=== PATIENT | male | born 1990 | race Hispanic/Latino ===

== ENCOUNTER 2016-11-20 14:31 | Inpatient (IN) | payer BC, MEDICAID ==
--- NOTE | 2016-11-20 15:22 | ED PDOC ---
HPI: General Adult Time Seen by Provider: 11/20/16 14:40 Chief Complaint (Nursing): Abdominal Pain Chief Complaint (Provider): abdominal pain History Per: Patient History/Exam Limitations: no limitations Additional Complaint(s): 26yo male comes to the ED complaining of abdominal pain and diarrhea. Pain is worse with movement. No vomit or fever. No dysuria. States he works out and is concerned for rhabdomyolosis, noting brown urine. Denies drinking protein shakes. pt has had heavy exercise and gym activity recently PMD: [place] Past Medical History Reviewed: Historical Data, Nursing Documentation, Vital Signs Vital Signs: Last Vital Signs Temp 97.3 F L 11/20/16 14:48 Pulse 68 11/20/16 14:48 Resp 16 11/20/16 21:29 BP 125/81 11/20/16 14:48 Pulse Ox 100 11/20/16 22:39 - Medical History PMH: Pneumonia (2016) Denies: Asthma, Bronchitis, Emphysema, HIV, Pulmonary Embolism, Chronic Kidney Disease - Surgical History Surgical History: No Surg Hx - Family History Family History: States: Unknown Family Hx - Social History Current smoker - smoking cessation education provided: No Alcohol: Occasional Drugs: Denies - Immunization History Hx Tetanus Toxoid Vaccination: No Hx Influenza Vaccination: No Hx Pneumococcal Vaccination: No - Home Medications Home Medications: Ambulatory Orders Medication Instructions Recorded No Known Home Med 11/20/16 - Allergies Allergies/Adverse Reactions: Allergies Allergy/AdvReac Type Severity Reaction Status Date / Time amoxicillin Allergy Mild RASH Verified 12/14/15 14:39 Review of Systems ROS Statement: Except As Marked, All Systems Reviewed And Found Negative Constitutional: Negative for: Fever Gastrointestinal: Positive for: Abdominal Pain, Diarrhea. Negative for: Nausea Genitourinary Male: Negative for: Dysuria, Hematuria Physical Exam - Reviewed Nursing Documentation Reviewed: Yes Vital Signs Reviewed: Yes - Physical Exam Appears: Positive for: Well, Non-toxic, No Acute Distress Head Exam: Positive for: ATRAUMATIC, NORMAL INSPECTION, NORMOCEPHALIC Skin: Positive for: Warm, Dry Eye Exam: Positive for: EOMI, PERRL Cardiovascular/Chest: Positive for: Regular Rate, Rhythm Respiratory: Positive for: Normal Breath Sounds. Negative for: Rales, Rhonchi, Wheezing Gastrointestinal/Abdominal: Positive for: Soft. Negative for: Tenderness, Distended, Guarding, Rebound Extremity: Positive for: Normal ROM Neurologic/Psych: Positive for: Alert, Oriented - Laboratory Results Result Diagrams: 11/20/16 15:45 11/20/16 15:45 - ECG O2 Sat by Pulse Oximetry: 100 (RA) Pulse Ox Interpretation: Normal Medical Decision Making Medical Decision Makin Impression abdominal pain rule out rhabdomyelysis in light of recent gym activity plan: -labs -IV fluids -reassess Time: 1730 labs results reviewed: LFT elevated Time: 1844 CK elevated, ordered IV fluids. Patient admitted at this time to family medicine under Dr. Whittington. Resident made aware of patient. Discussed all results with patient, advised about plan and answered all questions. resident spoke to Dr Salinas velazquez contractor general engineering who did not advise any further intervention other than iv fluids. Time: 1949 Patient sleeping comfortably on re-evaluation. Currently on his second liter of IV fluids, requesting food. Discussed the significance of his blood work but patient is insisting on something to eat. 2200 US shows no acute pathology Disposition - Clinical Impression Clinical Impression: Abdominal pain, Rhabdomyolysis - Patient ED Disposition Is Patient to be Admitted: Yes Counseled Patient/Family Regarding: Studies Performed, Diagnosis - Disposition Disposition Time: 16:00 Condition: STABLE Additional Comments - Additional Comments Additional Comments: Scribe Attestation: Documented by Adelfo Castillo acting as a scribe for Ludmila Arciniega MD. Scribe Attestation: All medical record entries made by the Scribe were at my direction and personally dictated by me. I have reviewed the chart and agree that the record accurately reflects my personal performance of the history, physical exam, medical decision making, and the department course for this patient. I have also personally directed, reviewed, and agree with the discharge instructions and disposition.
[2016-11-20] MEDS ORDERED: Sodium Chloride 0.9% 1,000 ML IV STA ×4 (15:30→20:07)
[2016-11-20 16:05] LABS: BASO % 0.3 % (0.0-2.0); EOS # 0.1 K/uL (0.0-0.7); EOS % 1.3 % (0.0-4.0); HEMATOCRIT 42.6 % (35.0-51.0); LYMPH # 1.7 K/uL (1.0-4.3); LYMPH % 19.5 % (20.0-40.0); MEAN CELL VOLUME 85.5 fl (80.0-94.0); MEAN CORPUSCULAR HEMOGLOBIN 29.4 pg (27.0-31.0); MEAN CORPUSCULAR HGB CONC 34.4 g/dL (33.0-37.0); MEAN PLATELET VOLUME 7.3 fl (7.2-11.7); MONO # 0.7 K/uL (0.0-0.8); MONO % 8.5 % (0.0-10.0); NEUT # 6.1 K/uL (1.8-7.0); NEUT % 70.4 % (50.0-75.0); RED CELL DISTRIBUTION WIDTH 12.6 % (11.5-14.5); WHITE BLOOD COUNT 8.7 K/uL (4.8-10.8)
[2016-11-20 16:23] LABS: ALB/GLOB RATIO 1.6 (1.0-2.1); ALKALINE PHOSPHATASE 59 U/L (38-126); ALT/SGPT 444 U/L (21-72); BLOOD UREA NITROGEN 21 mg/dl (9-20); CALCIUM 9.3 mg/dL (8.4-10.2); CARBON DIOXIDE 28 mmol/L (22-30); CHLORIDE 99 mmol/L (98-107); GFR AFRICAN-AMERICAN > 60; GLUCOSE,RANDOM 75 mg/dL (75-110); SODIUM 137 mmol/l (132-148); TOTAL PROTEIN 6.8 G/DL (6.3-8.2)
[2016-11-20 16:24] LABS: RBC URINE < 1 /hpf (0-3); URINE BACTERIA RARE (<OCC); URINE BILIRUBIN NEGATIVE (NEGATIVE); URINE BLOOD LARGE (NEGATIVE); URINE COLOR YELLOW (YELLOW); URINE GLUCOSE (UA) NEG (Normal); URINE KETONE TRACE mg/dL (NEGATIVE); URINE LEUKOCYTE ESTERASE NEG Leu/uL (Negative); URINE PROTEIN 100 mg/dL (NEGATIVE); URINE UROBILINOGEN 0.2-1.0 mg/dL (0.2-1.0); WBC URINE 18 /hpf (0-5)
[2016-11-20 17:26] LABS: AST/SGOT 2116 U/L (17-59)
--- NOTE | 2016-11-20 19:12 | CP.PCM.HP ---
<TrungretaWong koenig - Last Filed: 11/20/16 22:36> History of Present Illness - History of Present Illness History of Present Illness: 26 yo M w/o PMHx is admitted to the hospital for suspected rhabdomyolysis w c/o diarrhea, brown-colored urine, and diffuse myalgias that are intensely localized to the abdomen and thighs bilaterally. Pt was at the gym previously, denies any supplement usage or inciting trauma leading up to his current clinical picture. Denies initiating any rehydration therapy or taking any medications before arriving in ED. He also denies f/c/n/v/c, headaches, dizziness, cp, sob, dyspnea, hematochezia, or melena. PMD: Dr Whittington PMHx: Pneumonia PSHx: None Allergy: Amoxicillin Home Meds: None FHx: None SHx: social etoh, denies illicit drugs, denies cigarettes ED Course: -CBC -CMP -CPK -Drug Screen -UCx -UA -U/S Abd -NS 1L @ 999 mL/hr Present on Admission - Present on Admission Any Indicators Present on Admission: No History of DVT/PE: No History of Uncontrolled Diabetes: No Urinary Catheter: No Decubitus Ulcer Present: No Past Patient History - Infectious Disease Hx of Infectious Diseases: None - Past Medical History & Family History Past Medical History?: No - Past Social History Alcohol: Occasional Drugs: Denies - CARDIAC Hx Cardiac Disorders: No - PULMONARY Hx Asthma: No Hx Bronchitis: No Hx Emphysema: No Hx Pneumonia: Yes (2015) Hx Pulmonary Embolism: No - NEUROLOGICAL Hx Neurological Disorder: No - HEENT Hx HEENT Problems: Yes (frequent throat infection) - RENAL Hx Chronic Kidney Disease: No - ENDOCRINE/METABOLIC Hx Endocrine Disorders: No - HEMATOLOGICAL/ONCOLOGICAL Hx Human Immunodeficiency Virus (HIV): No - INTEGUMENTARY Hx Dermatological Problems: No - MUSCULOSKELETAL/RHEUMATOLOGICAL Hx Musculoskeletal Disorders: No Hx Falls: No - GASTROINTESTINAL Hx Gastrointestinal Disorders: No - GENITOURINARY/GYNECOLOGICAL Hx Genitourinary Disorders: No - PSYCHIATRIC Hx Substance Use: No - SURGICAL HISTORY Hx Surgeries: No - ANESTHESIA Hx Anesthesia: Yes Hx Anesthesia Reactions: Yes Meds Allergies/Adverse Reactions: Allergies Allergy/AdvReac Type Severity Reaction Status Date / Time amoxicillin Allergy Mild RASH Verified 12/14/15 14:39 Physical Exam - Constitutional Appears: Non-toxic, Other (obvious pain) - Head Exam Head Exam: ATRAUMATIC, NORMAL INSPECTION - Eye Exam Eye Exam: EOMI. absent: Conjunctival injection, Scleral icterus Pupil Exam: PERRL - ENT Exam ENT Exam: Mucous Membranes Dry - Neck Exam Neck exam: Positive for: Full Rom. Negative for: Tenderness - Respiratory Exam Respiratory Exam: Clear to Auscultation Bilateral, NORMAL BREATHING PATTERN. absent: Rhonchi, Wheezes - Cardiovascular Exam Cardiovascular Exam: REGULAR RHYTHM - GI/Abdominal Exam GI & Abdominal Exam: Firm, Guarding, Hyperactive Bowel Sounds. absent: Diminished Bowel Sounds, Distended, Tenderness - Extremities Exam Extremities exam: Positive for: normal inspection, tenderness (b/l thighs very TTP). Negative for: calf tenderness, pedal edema - Back Exam Back exam: absent: CVA tenderness (L), CVA tenderness (R) - Neurological Exam Neurological exam: Alert, CN II-XII Intact, Oriented x3 - Psychiatric Exam Psychiatric exam: Normal Affect, Normal Mood - Skin Skin Exam: Dry, Intact, Normal Color, Warm Results - Vital Signs Recent Vital Signs: Last Vital Signs Temp 97.3 F L 11/20/16 14:48 Pulse 68 11/20/16 14:48 Resp 18 11/20/16 14:48 BP 125/81 11/20/16 14:48 Pulse Ox 100 11/20/16 18:48 - Labs Result Diagrams: 11/20/16 15:45 11/20/16 15:45 Assessment & Plan - Assessment and Plan (Free Text) Plan: 26 yo M w/o PMHx is admitted to the hospital for suspected rhabdomyolysis w c/o diarrhea, brown-colored urine, and diffuse myalgias that are intensely localized to the thighs bilaterally and abdomen 1) Rhabdomyolysis -CPK Pending -AST/ALT: 2116/444 -NS 1L @ 999mL/hr [ED] -NS 1L @ 999mL/hr x2 -NS 1L @ 175mL/hr continuously -NPO until abdominal pain resolves and physical exam normalizes -Monitoring I&O's -Monitoring kidney function -f/u CMP, CPK @ 2300 to evaluate treatment initiation in order to optimize therapy -f/u EKG -f/u U/S Abd -f/u Serial Physical exams -f/u VBG to r/o acidosis -f/u Urine Myoglobin -f/u am CBC, CMP, CPK, Ca, Phos 2) DVT Prophylaxis -SCDs -Will consider further treatment if his hospital stay is extended and when the risk of kidney injury is lessened <Alfredo Whittington - Last Filed: 11/21/16 06:37> Results - Vital Signs Recent Vital Signs: Last Vital Signs Temp 97.3 F L 11/20/16 14:48 Pulse 68 11/20/16 14:48 Resp 16 11/21/16 00:19 BP 125/81 11/20/16 14:48 Pulse Ox 100 11/20/16 22:57 - Labs Result Diagrams: 11/20/16 15:45 11/20/16 23:36 Labs: Laboratory Results - last 24 hr 11/20/16 11/20/16 20:48 23:36 pO2 30 VBG pH 7.34 VBG pCO2 53 VBG HCO3 25.0 VBG O2 Sat (Calc) 60.9 VBG Base Excess 1.6 Sodium 141 Potassium 4.0 Chloride 106 Carbon Dioxide 24 Anion Gap 15 BUN 16 Creatinine 1.0 Est GFR ( Amer) > 60 Est GFR (Non-Af Amer) > 60 Random Glucose 69 L Calcium 8.5 Total Bilirubin 1.0 AST 1993 H ALT 425 H Alkaline Phosphatase 54 Total Creatine Kinase 34977 H Total Protein 6.0 L Albumin 3.1 L D Globulin 2.9 Albumin/Globulin Ratio 1.1 Assessment & Plan (1) Elevated liver enzymes Status: Acute Attending/Attestation - Attestation I have fully participated in the care of the patient.: Yes I have reviewed all pertinent clinical information: Yes
[2016-11-20] MEDS ORDERED: Sodium Chloride 0.9% 1,000 ML IV SCH (20:00)
[2016-11-20 20:50] LABS: VENOUS BLOOD GAS BASE EXCESS 1.6 mmol/L (0.0-2.0); VENOUS BLOOD GAS PCO2 53 mmHg (40-60); VENOUS BLOOD PH 7.34 (7.32-7.43)
--- NOTE | 2016-11-21 00:33 | CP.PCM.PN ---
<Wong Martinez - Last Filed: 11/21/16 00:31> Subjective - Date & Time of Evaluation Date of Evaluation: 11/21/16 Time of Evaluation: 00:30 - Subjective Subjective: Pt was sleeping upon entering the room at most recent encounter. When motionless pain is 3/10, but reports pain worsens during movement. Serial physical exams have not changed from initial exam, including intact b/l distal pulses. CPK level from previous draw resulted at 106,176. Abdominal U/S is read as showing 'no acute findings.' f/u I&O's f/u recent CMP, CPK <Alfredo Whittington - Last Filed: 11/21/16 06:38> Objective - Vital Signs/Intake and Output Vital Signs (last 24 hours): Temp Pulse Resp BP Pulse Ox 97.3 F L 68 16 125/81 100 11/20/16 14:48 11/20/16 14:48 11/21/16 00:19 11/20/16 14:48 11/20/16 22:57 - Medications Medications: Current Medications Sodium Chloride (Sodium Chloride 0.9%) 1,000 mls @ 200 mls/hr IV .Q5H [facility] - Labs Labs: 11/20/16 23:36 Assessment and Plan (1) Elevated liver enzymes Status: Acute Attending/Attestation - Attestation I have personally seen and examined this patient.: Yes I have fully participated in the care of the patient.: Yes I have reviewed all pertinent clinical information, including history, physical exam and plan: Yes
[2016-11-21 00:59] LABS: BLOOD UREA NITROGEN 16 mg/dl (9-20); GFR AFRICAN-AMERICAN > 60; GLUCOSE,RANDOM 69 mg/dL (75-110); SODIUM 141 mmol/l (132-148)
[2016-11-21 01:00] LABS: CALCIUM 8.5 mg/dL (8.4-10.2); CARBON DIOXIDE 24 mmol/L (22-30); CHLORIDE 106 mmol/L (98-107)
[2016-11-21 01:01] LABS: ALB/GLOB RATIO 1.1 (1.0-2.1); ALKALINE PHOSPHATASE 54 U/L (38-126); ALT/SGPT 425 U/L (21-72)
[2016-11-21 01:08] LABS: AST/SGOT 1993 U/L (17-59)
[2016-11-21 07:02] LABS: MEAN CORPUSCULAR HEMOGLOBIN 29.5 pg (27.0-31.0); MEAN CORPUSCULAR HGB CONC 34.3 g/dL (33.0-37.0); RED CELL DISTRIBUTION WIDTH 12.8 % (11.5-14.5); WHITE BLOOD COUNT 6.9 K/uL (4.8-10.8)
[2016-11-21 07:04] LABS: ALB/GLOB RATIO 1.1 (1.0-2.1); ALKALINE PHOSPHATASE 54 U/L (38-126); ALT/SGPT 448 U/L (21-72); BILIRUBIN,TOTAL 0.9 mg/dl (0.2-1.3); BLOOD UREA NITROGEN 16 mg/dl (9-20); CALCIUM 8.5 mg/dL (8.4-10.2); CARBON DIOXIDE 23 mmol/L (22-30); CHLORIDE 109 mmol/L (98-107); GFR AFRICAN-AMERICAN > 60; GLUCOSE,RANDOM 58 mg/dL (75-110); PHOSPHOROUS 4.3 mg/dl (2.5-4.5); POTASSIUM 4.2 MMOL/L (3.6-5.0); SODIUM 143 mmol/l (132-148)
[2016-11-21 07:41] LABS: AST/SGOT 1845 U/L (17-59)
--- NOTE | 2016-11-21 07:44 | CP.PCM.PN ---
<Victor M Edmond - Last Filed: 11/21/16 16:29> Subjective - Date & Time of Evaluation Date of Evaluation: 11/21/16 Time of Evaluation: 07:00 - Subjective Subjective: The patient is a 26 y/o man w/o PMHx is admitted to the hospital for suspected rhabdomyolysis w/ complaints of diarrhea, brown-colored urine, and diffuse myalgias that are intensely localized to the thighs bilaterally and abdomen. The patient was seen this morning. There are no acute events overnight. The patient is not in acute distress. The patient is laying in bed. The patient reports pain with ambulation but relieved while laying at rest. The patient denies headaches, dizziness, chest pain, dyspnea, nausea, vomiting, constipation , melena, and hematochezia. Objective - Vital Signs/Intake and Output Vital Signs (last 24 hours): Temp Pulse Resp BP Pulse Ox 97.3 F L 56 L 18 128/73 98 11/21/16 07:30 11/21/16 07:30 11/21/16 07:30 11/21/16 07:30 11/21/16 07:30 - Medications Medications: Current Medications Sodium Chloride (Sodium Chloride 0.9%) 1,000 mls @ 200 mls/hr IV .Q5H [facility] - Labs Labs: 11/21/16 06:43 11/21/16 06:43 - Constitutional Appears: No Acute Distress - Head Exam Head Exam: ATRAUMATIC, NORMOCEPHALIC - Eye Exam Eye Exam: EOMI Pupil Exam: PERRL - ENT Exam ENT Exam: Mucous Membranes Dry - Respiratory Exam Respiratory Exam: Clear to Ausculation Bilateral. absent: Accessory Muscle Use , Chest Wall Tenderness, Decreased Breath Sounds, Prolonged Expiratory Phase, Rales, Rhonchi, Wheezes, Respiratory Distress, Stridor - Cardiovascular Exam Cardiovascular Exam: REGULAR RHYTHM. absent: Tachycardia - GI/Abdominal Exam GI & Abdominal Exam: Firm, Guarding, Tenderness - Extremities Exam Extremities Exam: Tenderness. absent: Calf Tenderness, Pedal Edema Additional comments: bilateral thighs are tender to palpation - Neurological Exam Neurological Exam: Alert, Awake, Normal Gait, Oriented x3 - Skin Skin Exam: Dry, Intact, Normal Color, Warm Assessment and Plan - Assessment and Plan (Free Text) Assessment: The patient is a 26 y/o man w/o PMHx is admitted to the hospital for suspected rhabdomyolysis w/ complaints of diarrhea, brown-colored urine, and diffuse myalgias that are intensely localized to the thighs bilaterally and abdomen. Plan: 1) Rhabdomyolysis - CPK Pending - AST/ALT: 2116/444 - NS 1L @ 999mL/hr [ED] - NS 1L @ 999mL/hr x2 - NS 1L @ 200mL/hr continuously - NPO until abdominal pain resolves and physical exam normalizes - Monitoring I&O's - follow up EKG - follow up U/S Abd - follow up Serial Physical exams - VBG: pH 7.34, no acidosis - follow up Urine Myoglobin - follow up am CBC, CMP, CPK, Ca, Phos - follow up creatinine phosphokinase 88802 - kidney function stable, BUN 16 and Cr 0.9 - Urine tox: negative - nephrology consulted, Dr. Niño, made aware 2) Chemical Hepatitis - secondary to rhabdomyolysis - AST 1845 - ALT 448 3) DVT Prophylaxis - SCDs - patient ambulating Dispo: - patient made aware the severity of condition and necessity for treatment - patient counseled that condition without treatment could lead to irreversible kidney and liver damage - patient counseled that end organ damage may require permanent hemodialysis for kidneys and possible transplants of kidney and liver and even may lead to <Alfredo Whittington - Last Filed: 11/24/16 06:40> Objective - Vital Signs/Intake and Output Vital Signs (last 24 hours): Temp Pulse Resp BP Pulse Ox 98.5 F 50 L 18 117/71 98 11/23/16 21:26 11/23/16 21:26 11/23/16 21:26 11/23/16 21:26 11/23/16 21:26 Intake and Output: 11/23/16 11/24/16 18:59 06:59 Intake Total 5460 Output Total 6700 Balance -1240 - Medications Medications: Current Medications Sodium Chloride (Sodium Chloride 0.9%) 1,000 mls @ 250 mls/hr IV .Q4H [facility] Last Admin: 11/24/16 00:38 Dose: 250 mls/hr - Labs Labs: 11/21/16 06:43 11/24/16 05:15 Assessment and Plan (1) Elevated liver enzymes Status: Acute Attending/Attestation - Attestation I have personally seen and examined this patient.: Yes I have fully participated in the care of the patient.: Yes I have reviewed all pertinent clinical information, including history, physical exam and plan: Yes
[2016-11-21] MEDS: Sodium Chloride 0.9% 1,000 ML IV SCH ×4 (08:32→21:26)
--- NOTE | 2016-11-21 09:07 | US ---
HISTORY: abnormal liver function tests COMPARISON: None. TECHNIQUE: Sonographic evaluation of the abdomen. FINDINGS: LIVER: Measures 14.3 cm. Patent portal vein. Portal venous flow: Hepatopetal. Unremarkeable echogenicity of the liver parenchyma. No mass. No intrahepatic bile duct dilatation. GALLBLADDER: Unremarkable. No gallstones. COMMON BILE DUCT: Measures 2.9 mm. No stones. No dilatation. PANCREAS: Unremarkable as visualized. No mass. No ductal dilatation. RIGHT KIDNEY: Measures 0.1 x 11cm. Normal echogenicity. No calculus, mass, or hydronephrosis. LEFT KIDNEY: Measures 7.6 x 12.4cm. Normal echogenicity. No calculus, mass, or hydronephrosis. SPLEEN: Normal in size and contour. No mass. AORTA: No aneurysmal dilatation. IVC: Unremarkable. OTHER FINDINGS: None. IMPRESSION: No acute findings related to/accounting for the clinical presentation. Concordant results (preliminary interpretation) provided by [facility]. Procedure Completed: 18:39. Preliminary (vRad) Report: Dictated and Authenticated: 20:23. Final Interpretation: 09:04. November 21, 2016.
--- NOTE | 2016-11-21 09:49 | CP.PCM.CON ---
History of Present Illness - History of Present Illness History of Present Illness: This patient who is 26 years old came to the emergency room complaining of intense lower abdominal pain and upper thigh. After he has been doing very heavy exercise on the abdomen and legs at [employer]. Patient denied taken a lot of protein supplement. And noted in the emergency room that he has very high CPK and admitted for rhabdomyolysis who was over 100,000 CPK. No history of drugs Review of Systems - Review of Systems All systems: reviewed and no additional remarkable complaints except - Constitutional Constitutional: As Per HPI. absent: Night Sweats, Sleep Apnea - Cardiovascular Cardiovascular: absent: Chest Pain, Claudication, Dyspnea, Pedal Edema - Respiratory Respiratory: absent: Cough, Dyspnea, Hemoptysis - Gastrointestinal Gastrointestinal: Abdominal Pain. absent: Vomiting - Genitourinary Genitourinary: As Per HPI - Musculoskeletal Musculoskeletal: Muscle Weakness - Neurological Neurological: As Per HPI Past Patient History - Infectious Disease Hx of Infectious Diseases: None - Past Medical History & Family History Past Medical History?: No - Past Social History Alcohol: Occasional Drugs: Denies - CARDIAC Hx Cardiac Disorders: No - PULMONARY Hx Respiratory Disorders: Yes - NEUROLOGICAL Hx Neurological Disorder: No - HEENT Hx HEENT Problems: No - RENAL Hx Chronic Kidney Disease: No - ENDOCRINE/METABOLIC Hx Endocrine Disorders: No - HEMATOLOGICAL/ONCOLOGICAL Hx Blood Disorders: No - INTEGUMENTARY Hx Dermatological Problems: No - MUSCULOSKELETAL/RHEUMATOLOGICAL Hx Musculoskeletal Disorders: No - GASTROINTESTINAL Hx Gastrointestinal Disorders: No - GENITOURINARY/GYNECOLOGICAL Hx Genitourinary Disorders: No - PSYCHIATRIC Hx Psychophysiologic Disorder: No - SURGICAL HISTORY Hx Surgeries: No - ANESTHESIA Hx Anesthesia: Yes Hx Anesthesia Reactions: Yes Meds Allergies/Adverse Reactions: Allergies Allergy/AdvReac Type Severity Reaction Status Date / Time amoxicillin Allergy Mild RASH Verified 12/14/15 14:39 - Medications Medications: Current Medications Sodium Chloride (Sodium Chloride 0.9%) 1,000 mls @ 200 mls/hr IV .Q5H [facility] Last Admin: 11/21/16 08:32 Dose: 200 mls/hr Physical Exam - Constitutional Appears: No Acute Distress - Eye Exam Eye Exam: Normal appearance - ENT Exam ENT Exam: Mucous Membranes Moist - Respiratory Exam Respiratory Exam: NORMAL BREATHING PATTERN. absent: Chest Wall Tenderness - Cardiovascular Exam Cardiovascular Exam: REGULAR RHYTHM. absent: JVD, Rubs - GI/Abdominal Exam GI & Abdominal Exam: Normal Bowel Sounds - Extremities Exam Extremities exam: Negative for: calf tenderness - Back Exam Back exam: absent: CVA tenderness (L), CVA tenderness (R) - Neurological Exam Neurological exam: Alert Results - Vital Signs Recent Vital Signs: Last Vital Signs Temp 97.3 F L 11/21/16 07:30 Pulse 56 L 11/21/16 07:30 Resp 18 11/21/16 07:30 BP 128/73 11/21/16 07:30 Pulse Ox 98 11/21/16 07:30 - Labs Result Diagrams: 11/21/16 06:43 11/21/16 06:43 Labs: Laboratory Results - last 24 hr 11/20/16 11/20/16 11/21/16 20:48 23:36 06:43 WBC 6.9 RBC 4.65 Hgb 13.7 Hct 40.0 MCV 86.0 MCH 29.5 MCHC 34.3 RDW 12.8 Plt Count 201 pO2 30 VBG pH 7.34 VBG pCO2 53 VBG HCO3 25.0 VBG O2 Sat (Calc) 60.9 VBG Base Excess 1.6 Sodium 141 143 Potassium 4.0 4.2 Chloride 106 109 H Carbon Dioxide 24 23 Anion Gap 15 15 BUN 16 16 Creatinine 1.0 0.9 Est GFR ( Amer) > 60 > 60 Est GFR (Non-Af Amer) > 60 > 60 Random Glucose 69 L 58 L Calcium 8.5 8.5 Phosphorus 4.3 Total Bilirubin 1.0 0.9 AST 1993 H 1845 H ALT 425 H 448 H Alkaline Phosphatase 54 54 Total Creatine Kinase 62347 H 45981 H Total Protein 6.0 L 6.0 L Albumin 3.1 L D 3.1 L Globulin 2.9 2.9 Albumin/Globulin Ratio 1.1 1.1 Assessment & Plan (1) Rhabdomyolysis Assessment and Plan: Patient appeared to have rhabdomyolysis admitted with CPK over 100,000 and started to come down. Continue IV fluid and force fluid by mouth Urine for myoglobin Urinalysis noted that the has large amount of blood and no RBC consistent with rhabdomyolysis Abnormal liver enzyme continue to monitor Discussed with the resident and attending physician. Status: Acute
[2016-11-22] MEDS: Sodium Chloride 0.9% 1,000 ML IV SCH ×9 (00:26→20:30)
[2016-11-22 08:07] LABS: ALB/GLOB RATIO 1.2 (1.0-2.1); ALKALINE PHOSPHATASE 54 U/L (38-126); ALT/SGPT 544 U/L (21-72); BILIRUBIN,TOTAL 0.4 mg/dl (0.2-1.3); BLOOD UREA NITROGEN 9 mg/dl (9-20); CALCIUM 8.9 mg/dL (8.4-10.2); CARBON DIOXIDE 28 mmol/L (22-30); CHLORIDE 107 mmol/L (98-107); GFR AFRICAN-AMERICAN > 60; GLUCOSE,RANDOM 87 mg/dL (75-110); POTASSIUM 4.6 MMOL/L (3.6-5.0); SODIUM 144 mmol/l (132-148); TOTAL PROTEIN 6.3 G/DL (6.3-8.2)
--- NOTE | 2016-11-22 09:07 | CP.PCM.PN ---
Subjective - Date & Time of Evaluation Date of Evaluation: 11/22/16 Time of Evaluation: 09:04 - Subjective Subjective: Patient seen and examined at bedside, reported 2 bowel movement soft stool , and having good duiresis. he is a little anxious" when i can Be out of this hospitals and multiple time asked for her CPK labs values. he denied fever, nausea, vomits chest pain palpitation SOB Objective - Vital Signs/Intake and Output Vital Signs (last 24 hours): Temp Pulse Resp BP Pulse Ox 98.2 F 57 L 20 138/75 97 11/22/16 07:35 11/22/16 07:35 11/22/16 07:35 11/22/16 07:35 11/22/16 07:35 - Medications Medications: Current Medications Sodium Chloride (Sodium Chloride 0.9%) 1,000 mls @ 200 mls/hr IV .Q5H [facility] Last Admin: 11/22/16 05:37 Dose: 200 mls/hr - Labs Labs: 11/21/16 06:43 11/22/16 05:30 - Head Exam Additional comments: ATRAUMATIC, NORMOCEPHALIC - Eye Exam Eye Exam: EOMI Pupil Exam: PERRL - ENT Exam ENT Exam: Mucous Membranes Dry - Respiratory Exam Respiratory Exam: Clear to Ausculation Bilateral. absent: Accessory Muscle Use , Chest Wall Tenderness, Decreased Breath Sounds, Prolonged Expiratory Phase, Rales, Rhonchi, Wheezes, Respiratory Distress, Stridor - Cardiovascular Exam Cardiovascular Exam: REGULAR RHYTHM. absent: Tachycardia - GI/Abdominal Exam GI & Abdominal Exam: Firm, Guarding, Tenderness - Extremities Exam Extremities Exam: Tenderness. absent: Calf Tenderness, Pedal Edema Additional comments: bilateral thighs are tender to palpation - Neurological Exam Neurological Exam: Alert, Awake, Normal Gait, Oriented x3 - Skin Skin Exam: Dry, Intact, Normal Color, Warm Assessment and Plan - Assessment and Plan (Free Text) Assessment: ) Rhabdomyolysis - Increased IV fluids NS 400 ml/hr - Monitor I&O - Encourage to drink 2 gallons of water daily . - follow up creatinine phosphokinase trending down [place] admission [place] [address] today [id number] - kidney function stable, BUN 14 and Cr 0.8 - Urine tox: negative - Dr. Niño, consulted input appreciated - electrolytes WNL 2) Elevated LFT - secondary to rhabdomyolysis - AST 2092 - ALT 544 - will continue to monitor 3) DVT Prophylaxis - SCDs - patient ambulating
[2016-11-22 09:51] LABS: AST/SGOT 2092 U/L (17-59)
--- NOTE | 2016-11-22 23:14 | CP.PCM.PN ---
Subjective - Date & Time of Evaluation Date of Evaluation: 11/22/16 Time of Evaluation: 11:00 - Subjective Subjective: feels better no muscle ache Objective - Vital Signs/Intake and Output Vital Signs (last 24 hours): Temp Pulse Resp BP Pulse Ox 97.9 F 55 L 20 134/80 99 11/22/16 20:58 11/22/16 20:58 11/22/16 20:58 11/22/16 20:58 11/22/16 20:58 Intake and Output: 11/22/16 11/23/16 18:59 06:59 Intake Total 45465 Output Total 7700 Balance 3600 - Medications Medications: Current Medications Sodium Chloride (Sodium Chloride 0.9%) 1,000 mls @ 250 mls/hr IV .Q4H UMESH Last Admin: 11/22/16 20:30 Dose: Not Given - Labs Labs: 11/21/16 06:43 11/22/16 05:30 - Constitutional Appears: Well, Non-toxic, No Acute Distress - Head Exam Head Exam: NORMAL INSPECTION - Eye Exam Eye Exam: Normal appearance - ENT Exam ENT Exam: Mucous Membranes Moist - Neck Exam Neck Exam: Normal Inspection - Respiratory Exam Respiratory Exam: NORMAL BREATHING PATTERN - Cardiovascular Exam Cardiovascular Exam: REGULAR RHYTHM - GI/Abdominal Exam GI & Abdominal Exam: Soft - Extremities Exam Extremities Exam: Normal Inspection - Neurological Exam Neurological Exam: Alert, Oriented x3 - Psychiatric Exam Psychiatric exam: Normal Mood - Skin Skin Exam: Dry, Warm Assessment and Plan - Assessment and Plan (Free Text) Plan: rhabdomyolysis/transaminitis rhabdo sec to heavy exercise, normal renal function and good urine output continue isotonic fluids monitor electrolytes and uop d/w resident
[2016-11-23] MEDS: Sodium Chloride 0.9% 1,000 ML IV SCH ×5 (04:00→20:31)
[2016-11-23 08:12] LABS: ALB/GLOB RATIO 1.1 (1.0-2.1); ALKALINE PHOSPHATASE 51 U/L (38-126); ALT/SGPT 514 U/L (21-72); BILIRUBIN,TOTAL 0.3 mg/dl (0.2-1.3); BLOOD UREA NITROGEN 7 mg/dl (9-20); CALCIUM 8.7 mg/dL (8.4-10.2); CARBON DIOXIDE 31 mmol/L (22-30); CHLORIDE 106 mmol/L (98-107); GFR AFRICAN-AMERICAN > 60; GLUCOSE,RANDOM 80 mg/dL (75-110); SODIUM 145 mmol/l (132-148); TOTAL PROTEIN 5.7 G/DL (6.3-8.2)
[2016-11-23 10:25] LABS: AST/SGOT 1740 U/L (17-59)
--- NOTE | 2016-11-23 10:44 | CP.PCM.PN ---
Subjective - Date & Time of Evaluation Date of Evaluation: 11/23/16 Time of Evaluation: 10:40 - Subjective Subjective: The patient is a 26 y/o man w/o PMHx is admitted to the hospital for suspected rhabdomyolysis w/ complaints of diarrhea, brown-colored urine, and diffuse myalgias that are intensely localized to the thighs bilaterally and abdomen. The patient was seen this morning. There are no acute events overnight. The patient is not in acute distress. The patient is laying in bed. The patient reports that he is drinking a lot water, has 3 gallon containers at bedside. Reports good diuresis and soft bowel movement. In better spirits after he was informed that his CPK levels have improved. The patient denies headaches, dizziness, chest pain, dyspnea, nausea, vomiting, constipation, melena, and hematochezia. Objective - Vital Signs/Intake and Output Vital Signs (last 24 hours): Temp Pulse Resp BP Pulse Ox 97.8 F 51 L 20 122/70 98 11/23/16 07:32 11/23/16 07:32 11/23/16 07:32 11/23/16 07:32 11/23/16 07:32 - Medications Medications: Current Medications Sodium Chloride (Sodium Chloride 0.9%) 1,000 mls @ 250 mls/hr IV .Q4H UMESH Last Admin: 11/23/16 08:26 Dose: 250 mls/hr - Labs Labs: 11/21/16 06:43 11/23/16 06:30 - Constitutional Appears: No Acute Distress - Head Exam Head Exam: ATRAUMATIC, NORMOCEPHALIC - ENT Exam ENT Exam: Mucous Membranes Moist - Respiratory Exam Respiratory Exam: Clear to Ausculation Bilateral. absent: Accessory Muscle Use , Chest Wall Tenderness, Decreased Breath Sounds, Prolonged Expiratory Phase, Rales, Rhonchi, Wheezes, Respiratory Distress, Stridor - Cardiovascular Exam Cardiovascular Exam: REGULAR RHYTHM. absent: Tachycardia - GI/Abdominal Exam GI & Abdominal Exam: Firm, Guarding, Tenderness Additional comments: mild tenderness, swollen due to large amount of PO water intake - Extremities Exam Extremities Exam: absent: Calf Tenderness, Pedal Edema - Neurological Exam Neurological Exam: Alert, Awake, Normal Gait, Oriented x3 - Skin Skin Exam: Dry, Intact, Normal Color, Warm Assessment and Plan - Assessment and Plan (Free Text) Assessment: The patient is a 26 y/o man w/o PMHx is admitted to the hospital for suspected rhabdomyolysis w/ complaints of diarrhea, brown-colored urine, and diffuse myalgias that are intensely localized to the thighs bilaterally and abdomen. Plan: 1) Rhabdomyolysis - CPK: 02966 (down from 32541) - AST/ALT: 1740/514 - Monitoring I&O's - encourage PO water intake of 2 gallons daily - U/S Abd: no acute findings - follow up Serial Physical exams - kidney function stable, BUN 7 and Cr 0.8 - nephrology consulted, Dr. Niño; recommendations appreciated - follow up CPK and CMP tomorrow AM 2) Chemical Hepatitis - secondary to rhabdomyolysis - AST 1740 - ALT 514 - continue to monitor 3) DVT Prophylaxis - SCDs - patient ambulating
[2016-11-24] MEDS: Sodium Chloride 0.9% 1,000 ML IV SCH ×5 (00:38→22:36)
[2016-11-24 06:22] LABS: ALB/GLOB RATIO 1.1 (1.0-2.1); ALKALINE PHOSPHATASE 51 U/L (38-126); ALT/SGPT 454 U/L (21-72); BILIRUBIN,TOTAL 0.4 mg/dl (0.2-1.3); BLOOD UREA NITROGEN 8 mg/dl (9-20); CALCIUM 8.8 mg/dL (8.4-10.2); CARBON DIOXIDE 30 mmol/L (22-30); CHLORIDE 104 mmol/L (98-107); GFR AFRICAN-AMERICAN > 60; GLUCOSE,RANDOM 86 mg/dL (75-110); POTASSIUM 3.6 MMOL/L (3.6-5.0); SODIUM 145 mmol/l (132-148); TOTAL PROTEIN 5.5 G/DL (6.3-8.2)
[2016-11-24 06:33] LABS: AST/SGOT 1268 U/L (17-59)
--- NOTE | 2016-11-24 11:16 | CP.PCM.PN ---
Subjective - Date & Time of Evaluation Date of Evaluation: 11/24/16 Time of Evaluation: 11:14 - Subjective Subjective: Patient reported that he has been feeling much better No significant muscular pain Up and around Objective - Vital Signs/Intake and Output Vital Signs (last 24 hours): Temp Pulse Resp BP Pulse Ox 97.6 F 50 L 20 141/80 98 11/24/16 07:32 11/24/16 07:32 11/24/16 07:32 11/24/16 07:32 11/24/16 07:32 Intake and Output: 11/24/16 11/24/16 06:59 18:59 Intake Total 5000 Output Total 4700 Balance 300 - Medications Medications: Current Medications Sodium Chloride (Sodium Chloride 0.9%) 1,000 mls @ 250 mls/hr IV .Q4H UMESH Last Admin: 11/24/16 04:45 Dose: Not Given - Labs Labs: 11/21/16 06:43 11/24/16 05:15 Assessment and Plan (1) Rhabdomyolysis Assessment & Plan: Acute rhabdomyolysis was normal kidney function and normal electrolyte. CPK has came down to around 35,000+ Liver enzymes still elevated however trending down Patient improving hydration and f/up Status: Acute
--- NOTE | 2016-11-24 11:43 | CP.PCM.PN ---
<BonifaciomalvinIsrael - Last Filed: 11/24/16 12:50> Subjective - Date & Time of Evaluation Date of Evaluation: 11/24/16 Time of Evaluation: 11:43 - Subjective Subjective: pt seen and examined at bedside. No acute events overnight. Lying in bed comfortably, NAD. Reports improvement in abdominal pain and is no longer cramping in his legs. No other complaints. OOB/ambulating without difficulty. Denies headaches, changes in vision, CP/SOB/THOMPSON/palpitations, N/V/D/C. Objective - Vital Signs/Intake and Output Vital Signs (last 24 hours): Temp Pulse Resp BP Pulse Ox 97.6 F 50 L 20 141/80 98 11/24/16 07:32 11/24/16 07:32 11/24/16 07:32 11/24/16 07:32 11/24/16 07:32 Intake and Output: 11/24/16 11/24/16 06:59 18:59 Intake Total 5000 Output Total 4700 Balance 300 - Medications Medications: Current Medications Sodium Chloride (Sodium Chloride 0.9%) 1,000 mls @ 250 mls/hr IV .Q4H UMESH Last Admin: 11/24/16 04:45 Dose: Not Given - Labs Labs: 11/21/16 06:43 11/24/16 05:15 - Constitutional Appears: Non-toxic, No Acute Distress - Eye Exam Eye Exam: EOMI Pupil Exam: PERRL - ENT Exam ENT Exam: Normal Oropharynx - Respiratory Exam Respiratory Exam: Clear to Ausculation Bilateral, NORMAL BREATHING PATTERN. absent: Rales, Rhonchi, Wheezes - Cardiovascular Exam Cardiovascular Exam: REGULAR RHYTHM, RRR, +S1. absent: JVD, Rubs, Murmur - GI/Abdominal Exam GI & Abdominal Exam: Soft, Tenderness, Normal Bowel Sounds. absent: Distended, Firm, Guarding, Rigid Additional comments: minor tenderness to palpation around abdominal muscles. - Extremities Exam Extremities Exam: Full ROM, Normal Capillary Refill, Normal Inspection. absent : Calf Tenderness, Pedal Edema - Neurological Exam Neurological Exam: Alert, Awake, CN II-XII Intact, Normal Gait, Oriented x3 - Psychiatric Exam Psychiatric exam: Normal Affect, Normal Mood - Skin Skin Exam: Dry, Intact, Normal Color, Warm Assessment and Plan - Assessment and Plan (Free Text) Assessment: The patient is a 26 y/o man w/o PMHx is admitted to the hospital for rhabdomyolysis. Plan: 1) Rhabdomyolysis - CPK: 56851 (down from 32688) - AST/ALT: 1268/454 - Monitoring I&O's - aggressive fluid therapy - encourage PO water intake of 2 gallons daily - U/S Abd: no acute findings - follow up Serial Physical exams - kidney function stable, BUN 8 and Cr 0.8 - nephrology consulted, Dr. Niño; recommendations appreciated - follow up CPK and CMP tomorrow AM 2) Chemical Hepatitis - secondary to rhabdomyolysis - AST 1268 - ALT 454 - continue to monitor 3) DVT Prophylaxis - SCDs - patient ambulating <Alfredo Whittington - Last Filed: 11/25/16 06:39> Objective - Vital Signs/Intake and Output Vital Signs (last 24 hours): Temp Pulse Resp BP Pulse Ox 97.7 F 52 L 20 132/77 100 11/25/16 01:00 11/25/16 01:00 11/25/16 01:00 11/25/16 01:00 11/25/16 01:00 Intake and Output: 11/24/16 11/25/16 18:59 06:59 Intake Total 9120 Output Total 8500 Balance 620 - Medications Medications: Current Medications Sodium Chloride (Sodium Chloride 0.9%) 1,000 mls @ 250 mls/hr IV .Q4H UMESH Last Admin: 11/25/16 06:35 Dose: 250 mls/hr - Labs Labs: 11/21/16 06:43 11/24/16 05:15 Assessment and Plan (1) Elevated liver enzymes Status: Acute Attending/Attestation - Attestation I have personally seen and examined this patient.: Yes I have fully participated in the care of the patient.: Yes I have reviewed all pertinent clinical information, including history, physical exam and plan: Yes
[2016-11-25] MEDS: Sodium Chloride 0.9% 1,000 ML IV SCH ×2 (02:27→06:35)
[2016-11-25 07:58] LABS: ALKALINE PHOSPHATASE 44 U/L (38-126); ALT/SGPT 352 U/L (21-72); AST/SGOT 733 U/L (17-59); BILIRUBIN,TOTAL 0.3 mg/dl (0.2-1.3); BLOOD UREA NITROGEN 7 mg/dl (9-20); CALCIUM 7.9 mg/dL (8.4-10.2); CARBON DIOXIDE 29 mmol/L (22-30); CHLORIDE 108 mmol/L (98-107); GFR AFRICAN-AMERICAN > 60; GLUCOSE,RANDOM 74 mg/dL (75-110); POTASSIUM 3.5 MMOL/L (3.6-5.0); SODIUM 147 mmol/l (132-148); TOTAL PROTEIN 5.1 G/DL (6.3-8.2)
[2016-11-25] MEDS ORDERED: Potassium Chloride 20 mEq ER Tab PO ONE (08:53)
--- NOTE | 2016-11-25 09:39 | US ---
HISTORY: elevated LFTs; rhabdo COMPARISON: Comparison is made to the previous study dated 11/20/2016 TECHNIQUE: Sonographic evaluation of the abdomen. FINDINGS: LIVER: Measures 20.3 cm. Normal echogenicity of the liver parenchyma. No mass. No intrahepatic bile duct dilatation. GALLBLADDER: Unremarkable. No gallstones. COMMON BILE DUCT: Measures 3.6 mm. No stones. No dilatation. PANCREAS: Unremarkable as visualized. No mass. No ductal dilatation. RIGHT KIDNEY: Measures 12.4 x 6.4 x 4.8cm. Normal echogenicity. No calculus, mass, or hydronephrosis. LEFT KIDNEY: Measures 12 x 7.4 x 6.8cm. Normal echogenicity. No calculus, mass, or hydronephrosis. SPLEEN: Normal in size and contour. No mass. AORTA: No aneurysmal dilatation. IVC: Unremarkable. OTHER FINDINGS: None. IMPRESSION: No evidence of acute pathology. Mild hepatomegaly.
[2016-11-25 11:04] VITALS: BP 128/74; PULSE 51; RESP 16; TEMP 97.1; O2SAT 99
--- NOTE | 2016-11-25 12:29 | CP.PCM.DIS ---
<Israel Tavarez - Last Filed: 11/25/16 12:35> Provider - Provider Date of Admission: 11/20/16 18:05 Attending physician: Alfredo Whittington MD Time Spent in preparation of Discharge (in minutes): 35 Hospital Course - Lab Results Lab Results: Most Recent Lab Values WBC 6.9 K/uL (4.8-10.8) 11/21/16 06:43 RBC 4.65 Mil/uL (4.40-5.90) 11/21/16 06:43 Hgb 13.7 g/dL (12.0-18.0) 11/21/16 06:43 Hct 40.0 % (35.0-51.0) 11/21/16 06:43 MCV 86.0 fl (80.0-94.0) 11/21/16 06:43 MCH 29.5 pg (27.0-31.0) 11/21/16 06:43 MCHC 34.3 g/dL (33.0-37.0) 11/21/16 06:43 RDW 12.8 % (11.5-14.5) 11/21/16 06:43 Plt Count 201 K/uL (130-400) 11/21/16 06:43 MPV 7.3 fl (7.2-11.7) 11/20/16 15:45 Neut % (Auto) 70.4 % (50.0-75.0) 11/20/16 15:45 Lymph % (Auto) 19.5 % (20.0-40.0) L 11/20/16 15:45 [place] % (Auto) 8.5 % (0.0-10.0) 11/20/16 15:45 Eos % (Auto) 1.3 % (0.0-4.0) 11/20/16 15:45 Baso % (Auto) 0.3 % (0.0-2.0) 11/20/16 15:45 Neut # 6.1 K/uL (1.8-7.0) 11/20/16 15:45 Lymph # 1.7 K/uL (1.0-4.3) 11/20/16 15:45 [place] # 0.7 K/uL (0.0-0.8) 11/20/16 15:45 Eos # 0.1 K/uL (0.0-0.7) 11/20/16 15:45 Baso # 0.0 K/uL (0.0-0.2) 11/20/16 15:45 pO2 30 mm/Hg (30-55) 11/20/16 20:48 VBG pH 7.34 (7.32-7.43) 11/20/16 20:48 VBG pCO2 53 mmHg (40-60) 11/20/16 20:48 VBG HCO3 25.0 mmol/L 11/20/16 20:48 VBG O2 Sat (Calc) 60.9 % (40-65) 11/20/16 20:48 VBG Base Excess 1.6 mmol/L (0.0-2.0) 11/20/16 20:48 Sodium 147 mmol/l (132-148) 11/25/16 07:30 Potassium 3.5 MMOL/L (3.6-5.0) L 11/25/16 07:30 Chloride 108 mmol/L (98-107) H 11/25/16 07:30 Carbon Dioxide 29 mmol/L (22-30) 11/25/16 07:30 Anion Gap 14 (10-20) 11/25/16 07:30 BUN 7 mg/dl (9-20) L 11/25/16 07:30 Creatinine 0.8 mg/dL (0.8-1.5) 11/25/16 07:30 Est GFR ( Amer) > 60 11/25/16 07:30 Est GFR (Non-Af Amer) > 60 11/25/16 07:30 Random Glucose 74 mg/dL (75-110) L 11/25/16 07:30 Calcium 7.9 mg/dL (8.4-10.2) L 11/25/16 07:30 Phosphorus 4.3 mg/dl (2.5-4.5) 11/21/16 06:43 Total Bilirubin 0.3 mg/dl (0.2-1.3) 11/25/16 07:30 AST 733 U/L (17-59) H D 11/25/16 07:30 ALT 352 U/L (21-72) H D 11/25/16 07:30 Alkaline Phosphatase 44 U/L (38-126) 11/25/16 07:30 Total Creatine Kinase 76971 U/L (55-170) H 11/25/16 07:30 Total Protein 5.1 G/DL (6.3-8.2) L 11/25/16 07:30 Albumin 2.6 g/dL (3.5-5.0) L 11/25/16 07:30 Globulin 2.5 gm/dL (2.2-3.9) 11/25/16 07:30 Albumin/Globulin Ratio 1.0 (1.0-2.1) 11/25/16 07:30 Urine Color Yellow (YELLOW) 11/20/16 15:30 Urine Clarity Slighty-cloudy (Clear) 11/20/16 15:30 Urine pH 5.0 (5.0-8.0) 11/20/16 15:30 Ur Specific [place] 1.025 (1.003-1.030) 11/20/16 15:30 Urine Protein 100 mg/dL (NEGATIVE) 11/20/16 15:30 Urine Glucose (UA) Neg mg/dL (Normal) 11/20/16 15:30 Urine Ketones Trace mg/dL (NEGATIVE) 11/20/16 15:30 Urine Blood Large (NEGATIVE) 11/20/16 15:30 Urine Nitrate Negative (NEGATIVE) 11/20/16 15:30 Urine Bilirubin Negative (NEGATIVE) 11/20/16 15:30 Urine Urobilinogen 0.2-1.0 mg/dL (0.2-1.0) 11/20/16 15:30 Ur Leukocyte Esterase Neg Alanna/uL (Negative) 11/20/16 15:30 Urine RBC (Auto) < 1 /hpf (0-3) 11/20/16 15:30 Urine Microscopic WBC 18 /hpf (0-5) H 11/20/16 15:30 Ur Squamous Epith Cells < 1 /hpf (0-5) 11/20/16 15:30 Urine Bacteria Rare (<OCC) 11/20/16 15:30 Urine Opiates Screen Negative (NEGATIVE) 11/20/16 15:30 Urine Methadone Screen Negative (NEGATIVE) 11/20/16 15:30 Ur Barbiturates Screen Negative (NEGATIVE) 11/20/16 15:30 Ur Phencyclidine Scrn Negative (NEGATIVE) 11/20/16 15:30 Ur Amphetamines Screen Negative (NEGATIVE) 11/20/16 15:30 U Benzodiazepines Scrn Negative (NEGATIVE) 11/20/16 15:30 U Oth Cocaine Metabols Negative (NEGATIVE) 11/20/16 15:30 U Cannabinoids Screen Negative (NEGATIVE) 11/20/16 15:30 - Hospital Course Hospital Course: 26 y/o male with an otherwise unremarkable PMHx presented to the ED several days ago with a CC of abdominal pain and leg cramping. He reported he just completed a new exercise routine and felt as if his pain was getting worse. His diffuse myalgias were associated with diarrhea and brown colored urine. On admission, he was found to have elevated liver enzymes (AST/ALT) at 2116/444 and a total creatinine kinase of 718604. He was admitted for rhabdomyolysis. Dr. Niño was brought on board. The patient was aggressively treated with IV and PO fluids. Kidney function, Liver ezymes, and total CK were all monitored and trended. [place] [address]. After an uneventful hospital stay he was discharged in stable condition with orders to continue PO fluid intake at 2 gallons daily, avoid exercise and alcohol consumption, and to get a follow up CMP and CK done before following up with Dr. Whittington. Discharge Exam - Head Exam Head Exam: NORMAL INSPECTION - Eye Exam Eye Exam: EOMI Pupil Exam: PERRL - ENT Exam ENT Exam: Mucous Membranes Moist - Respiratory Exam Respiratory Exam: Clear to PA & Lateral, NORMAL BREATHING PATTERN, UNREMARKABLE - Cardiovascular Exam Cardiovascular Exam: REGULAR RHYTHM, RRR, +S1, +S2. absent: JVD, Rubs - GI/Abdominal Exam GI & Abdominal Exam: Distended (abdominal bloating secondary to fluid consumption), Normal Bowel Sounds, Unremarkable - Extremities Exam Extremities exam: full ROM, normal inspection, pedal pulses present - Neurological Exam Neurological exam: Alert, CN II-XII Intact, Normal Gait, Oriented x3, Reflexes Normal - Psychiatric Exam Psychiatric exam: Normal Affect, Normal Mood - Skin Skin Exam: Dry, Intact, Normal Color, Warm Discharge Plan - Follow Up Plan Condition: STABLE Disposition: HOME/ ROUTINE Instructions: Rhabdomyolysis (DC) Additional Instructions: Complete rest. Continue to hydrate. drink at least 2 gallons of water daily No contact sports or working out. no strenuous activity. Have repeat blood work done in 2 days, and follow up with Dr. Whittington the day after. Return if any worsening symptoms develop or for any other concerns do not drink alcohol No contact sports no running jogging rest as much as possible not to return to work until see in the office with post discharge lab work reviewed Referrals: Louie Niño MD [Staff Provider] - Alfredo Whittington MD [Staff Provider] - <Alfredo Whittington - Last Filed: 11/27/16 06:51> Provider - Provider Date of Admission: 11/20/16 18:05 Attending physician: Alfredo Whittington MD Diagnosis - Discharge Diagnosis (1) Elevated liver enzymes Status: Acute Hospital Course - Lab Results Lab Results: Most Recent Lab Values WBC 6.9 K/uL (4.8-10.8) 11/21/16 06:43 RBC 4.65 Mil/uL (4.40-5.90) 11/21/16 06:43 Hgb 13.7 g/dL (12.0-18.0) 11/21/16 06:43 Hct 40.0 % (35.0-51.0) 11/21/16 06:43 MCV 86.0 fl (80.0-94.0) 11/21/16 06:43 MCH 29.5 pg (27.0-31.0) 11/21/16 06:43 MCHC 34.3 g/dL (33.0-37.0) 11/21/16 06:43 RDW 12.8 % (11.5-14.5) 11/21/16 06:43 Plt Count 201 K/uL (130-400) 11/21/16 06:43 MPV 7.3 fl (7.2-11.7) 11/20/16 15:45 Neut % (Auto) 70.4 % (50.0-75.0) 11/20/16 15:45 Lymph % (Auto) 19.5 % (20.0-40.0) L 11/20/16 15:45 [place] % (Auto) 8.5 % (0.0-10.0) 11/20/16 15:45 Eos % (Auto) 1.3 % (0.0-4.0) 11/20/16 15:45 Baso % (Auto) 0.3 % (0.0-2.0) 11/20/16 15:45 Neut # 6.1 K/uL (1.8-7.0) 11/20/16 15:45 Lymph # 1.7 K/uL (1.0-4.3) 11/20/16 15:45 [place] # 0.7 K/uL (0.0-0.8) 11/20/16 15:45 Eos # 0.1 K/uL (0.0-0.7) 11/20/16 15:45 Baso # 0.0 K/uL (0.0-0.2) 11/20/16 15:45 pO2 30 mm/Hg (30-55) 11/20/16 20:48 VBG pH 7.34 (7.32-7.43) 11/20/16 20:48 VBG pCO2 53 mmHg (40-60) 11/20/16 20:48 VBG HCO3 25.0 mmol/L 11/20/16 20:48 VBG O2 Sat (Calc) 60.9 % (40-65) 11/20/16 20:48 VBG Base Excess 1.6 mmol/L (0.0-2.0) 11/20/16 20:48 Sodium 147 mmol/l (132-148) 11/25/16 07:30 Potassium 3.5 MMOL/L (3.6-5.0) L 11/25/16 07:30 Chloride 108 mmol/L (98-107) H 11/25/16 07:30 Carbon Dioxide 29 mmol/L (22-30) 11/25/16 07:30 Anion Gap 14 (10-20) 11/25/16 07:30 BUN 7 mg/dl (9-20) L 11/25/16 07:30 Creatinine 0.8 mg/dL (0.8-1.5) 11/25/16 07:30 Est GFR ( Amer) > 60 11/25/16 07:30 Est GFR (Non-Af Amer) > 60 11/25/16 07:30 Random Glucose 74 mg/dL (75-110) L 11/25/16 07:30 Calcium 7.9 mg/dL (8.4-10.2) L 11/25/16 07:30 Phosphorus 4.3 mg/dl (2.5-4.5) 11/21/16 06:43 Total Bilirubin 0.3 mg/dl (0.2-1.3) 11/25/16 07:30 AST 733 U/L (17-59) H D 11/25/16 07:30 ALT 352 U/L (21-72) H D 11/25/16 07:30 Alkaline Phosphatase 44 U/L (38-126) 11/25/16 07:30 Total Creatine Kinase 40481 U/L (55-170) H 11/25/16 07:30 Total Protein 5.1 G/DL (6.3-8.2) L 11/25/16 07:30 Albumin 2.6 g/dL (3.5-5.0) L 11/25/16 07:30 Globulin 2.5 gm/dL (2.2-3.9) 11/25/16 07:30 Albumin/Globulin Ratio 1.0 (1.0-2.1) 11/25/16 07:30 Urine Color Yellow (YELLOW) 11/20/16 15:30 Urine Clarity Slighty-cloudy (Clear) 11/20/16 15:30 Urine pH 5.0 (5.0-8.0) 11/20/16 15:30 Ur Specific [place] 1.025 (1.003-1.030) 11/20/16 15:30 Urine Protein 100 mg/dL (NEGATIVE) 11/20/16 15:30 Urine Glucose (UA) Neg mg/dL (Normal) 11/20/16 15:30 Urine Ketones Trace mg/dL (NEGATIVE) 11/20/16 15:30 Urine Blood Large (NEGATIVE) 11/20/16 15:30 Urine Nitrate Negative (NEGATIVE) 11/20/16 15:30 Urine Bilirubin Negative (NEGATIVE) 11/20/16 15:30 Urine Urobilinogen 0.2-1.0 mg/dL (0.2-1.0) 11/20/16 15:30 Ur Leukocyte Esterase Neg Alanna/uL (Negative) 11/20/16 15:30 Urine RBC (Auto) < 1 /hpf (0-3) 11/20/16 15:30 Urine Microscopic WBC 18 /hpf (0-5) H 11/20/16 15:30 Ur Squamous Epith Cells < 1 /hpf (0-5) 11/20/16 15:30 Urine Bacteria Rare (<OCC) 11/20/16 15:30 Urine Opiates Screen Negative (NEGATIVE) 11/20/16 15:30 Urine Methadone Screen Negative (NEGATIVE) 11/20/16 15:30 Ur Barbiturates Screen Negative (NEGATIVE) 11/20/16 15:30 Ur Phencyclidine Scrn Negative (NEGATIVE) 11/20/16 15:30 Ur Amphetamines Screen Negative (NEGATIVE) 11/20/16 15:30 U Benzodiazepines Scrn Negative (NEGATIVE) 11/20/16 15:30 U Oth Cocaine Metabols Negative (NEGATIVE) 11/20/16 15:30 U Cannabinoids Screen Negative (NEGATIVE) 11/20/16 15:30 Hepatitis A IgM Ab Negative (NEGATIVE) 11/25/16 07:15 Hep Bs Antigen Negative (NEGATIVE) 11/25/16 07:15 Hep B Core IgM Ab Negative (NEGATIVE) 11/25/16 07:15 Hepatitis C Antibody Negative (NEGATIVE) 11/25/16 07:15
--- NOTE | 2016-11-25 12:42 | CP.PCM.PN ---
Subjective - Date & Time of Evaluation Date of Evaluation: 11/25/16 Time of Evaluation: 12:41 - Subjective Subjective: Patient asymptomatic he feels much better Patient is up and around CPK came down to about 14,000+ Liver enzyme continued to improve and trending down Clinically continued to improve and feeling better A/P Rhabdomyolysis recovering . Continue by mouth hydration patient is going home follow-up and repeat the blood work in 2 days Objective - Vital Signs/Intake and Output Vital Signs (last 24 hours): Temp Pulse Resp BP Pulse Ox 97.1 F L 51 L 16 128/74 99 11/25/16 09:00 11/25/16 09:00 11/25/16 09:00 11/25/16 09:00 11/25/16 09:00 Intake and Output: 11/25/16 11/25/16 06:59 18:59 Intake Total 3850 Output Total 5000 Balance -1150 - Medications Medications: Current Medications Sodium Chloride (Sodium Chloride 0.9%) 1,000 mls @ 250 mls/hr IV .Q4H UMESH Last Admin: 11/25/16 06:35 Dose: 250 mls/hr - Labs Labs: 11/21/16 06:43 11/25/16 07:30 Assessment and Plan (1) Rhabdomyolysis Status: Acute
== END 2016-11-25 12:00 | disposition home or self-care (01) | DRG 558 ==
LOC: H.ER 14:31 → H.ERHOLD 18:05 → H.MEDSURG1 21:00 → H.PEDS 11-24 12:31
PROVIDERS: ADMIT Family Medicine; ATTEND Family Medicine
DX: M62.82 Rhabdomyolysis (principal); R74.8 Abnormal levels of other serum enzymes; Z87.01 Personal history of pneumonia (recurrent)